=== PATIENT | male | born 1950 | race Caucasian/White ===

== ENCOUNTER 2020-05-04 11:08 | Outpatient (CLI) | payer OTHER, SELFPAY ==
--- NOTE | ~2020-05-04 | XR_ITS ---
EXAMINATION: XR shoulder LT min 2V DATE: 05/04/2020 11:23 INDICATION: Left shoulder pain. TECHNIQUE: 4 views of left shoulder were obtained. COMPARISON: None. FINDINGS: Bone alignment is normal. No fracture. There is mild osteoarthritis of glenohumeral joint a nd acromioclavicular joint. IMPRESSION: 1. Mild polyarticular osteoarthritis. Reviewed, dictated and finalized at location A.
== END 2020-05-04 11:09 | disposition home or self-care (01) ==
LOC: ANHIMG 11:12
PROVIDERS: PCP Internal Medicine; Visit Provider Nurse Practitioner
DX: M19.012 Primary osteoarthritis, left shoulder (principal)
CPT/HCPCS: 73030

== ENCOUNTER → 2020-05-17 15:16 | Outpatient (CLI) | payer OTHER, SELFPAY ==
--- NOTE | ~2020-05-17 | MR_ITS ---
EXAMINATION: MR shoulder LT wo con DATE: 05/17/2020 16:19 INDICATION: Left shoulder pain TECHNIQUE: Magnetic resonance imaging (MRI) of the left shoulder was performed without intravenous co ntrast. Sequences included axial PD-weighted FS FSE, coronal oblique PD-weighted FS FSE, coronal obli que T2-weighted FS FSE, sagittal PD-weighted FS FSE, and sagittal T1-weighted SE. COMPARISON: None. FINDINGS: Coracoacromial arch: The acromion undersurface is curved in morphology (type II). Small anterior subacromial spur at the a cromial insertion of the normal coracoacromial ligament. Mild acromioclavicular osteoarthritis. Rotator cuff: Suture anchors and multiple foci of susceptibility artifact along the greater tuberosity and cephalad aspect of the lesser tuberosity consistent with prior rotator cuff repair. There is moderate tendino dejuan of the distal supraspinatus and infraspinatus tendons and mild tendinopathy of the subscapulari s tendon but without evident residual/recurrent tear. The teres minor tendon is normal. Normal rotato r cuff muscle bulk and signal. Biceps tendon, glenoid labrum and glenohumeral cartilage: Postoperative change of prior bicipital tenodesis with normal appearance to the extra articular long head biceps tendon. There is been resection of the intra-articular long head biceps tendon from the b iceps labral complex. Normal anterosuperior sublingual foramen contiguous with a subtle labral sulcus at the 12:00-1:00 position of the anterosuperior glenoid labrum. No evident labral tear. Minimal sha llow chondral fissuring at the inferomedial margin of the humeral head. Mild partial thickness cartil age loss with smooth chondral surface at the anterosuperior glenoid. Fluid: Physiologic amount of fluid in the glenohumeral joint and biceps tendon sheath. No loose osteochondra l bodies. Small to moderate amount of fluid and mild synovitis in the subacromial/subdeltoid bursa co nsistent with mild to moderate bursitis. The fluid could also represent fluid from the glenohumeral j oint extending to residual occult full-thickness rotator cuff perforations related to the repaired te ar. Bones: Normal marrow signal with no edema, fracture or pathologic marrow replacing process. IMPRESSION: 1. Changes at the distal subscapularis, supraspinatus and infraspinatus tendons and their osseous ins ertions consistent with prior rotator cuff repair. There is residual mild to moderate tendinopathy wi thout discrete residual/recurrent tear. 2. Bicipital tenodesis. 3. Minimal left glenohumeral and mild acromioclavicular osteoarthritis. 4. Mild to moderate subacromial/subdeltoid bursitis. Reviewed, dictated and finalized at location A. IMPRESSION: 1. Changes at the distal subscapularis, supraspinatus and infraspinatus tendons and their osseous insertions consistent with prior rotator cuff repair. There is residual mild to moderate tendinopathy without discrete residual/recurrent t ear. 2. Bicipital tenodesis. 3. Minimal left glenohumeral and mild acromioclavicular osteoarthritis. 4. Mild to moderate subacromial/subdeltoid bursitis.
== END ==
PROVIDERS: PCP Internal Medicine; Visit Provider Clinical Nurse Specialist
DX: M75.52 Bursitis of left shoulder (principal); M75.22 Bicipital tendinitis, left shoulder; M19.012 Primary osteoarthritis, left shoulder
CPT/HCPCS: 73221

== ENCOUNTER 2020-11-03 08:33 | Outpatient (CLI) | payer OTHER, SELFPAY ==
--- NOTE | 2020-11-03 08:36 | ECG_ITS ---
Measurements Intervals [place] Rate: 55 P: 24 MS: 199 QRS: 6 QRSD: 104 T: 20 QT: 411 QTc: 396 Interpretive Statements SINUS BRADYCARDIA RSR' IN V1 OR V2, CONSIDER RIGHT VENTRICULAR HYPERTROPHY OR RIGHT VCD DELAYED PRECORDIAL R/S TRANSITION BASELINE ARTIFACT- I, II, III, AVR, AVL, AVF BORDERLINE ECG Electronically Signed On 11-03-2020 8:55:32 [employer] by Arpit Blake D.O.
== END 2020-11-03 08:34 | disposition home or self-care (01) ==
LOC: ANHSURGERY 08:36
PROVIDERS: PCP Internal Medicine; Visit Provider Orthopaedic Surgery
DX: Z01.818 Encounter for other preprocedural examination (principal); I10 Essential (primary) hypertension; R94.31 Abnormal electrocardiogram [ECG] [EKG]
CPT/HCPCS: 93005

== ENCOUNTER 2020-11-04 01:46 | Outpatient (CLI) | payer OTHER, SELFPAY ==
[2020-11-04 18:59] LABS: SARS-CoV-2 RNA PCR Negative
== END 2020-11-04 01:47 | disposition home or self-care (01) ==
LOC: ANHCOVIDDT 01:46
PROVIDERS: PCP Internal Medicine; Visit Provider Orthopaedic Surgery
DX: Z01.812 Encounter for preprocedural laboratory examination (principal); Z20.828 Contact with and (suspected) exposure to other viral communicable diseases
CPT/HCPCS: 87635; C9803; U0003

== ENCOUNTER 2020-11-07 01:36 | Day surgery (SDC) | payer OTHER, SELFPAY ==
[2020-10-31 09:51] VITALS: BMI 30.4
--- NOTE | 2020-11-06 12:00 | WPDANESEPPF ---
Anes - Initial Pre Proc Eval Procedure: Operation Date: 11/07/20 10:00 Proposed Procedures p Arthroscopic Rotator Cuff Repair Left Shoulder, Proceed as Indicated - Kunal Gaona MD Date/Time: 11/06/20 12:00 Surgeon: Kunal Gaona MD Pre Op Diagnosis: partial tear left rotator cuff Patient Data Age: 70 Gender: M Height: 1.8 m Weight: 99 kg Allergies Allergy/AdvReac Type Severity Reaction Status Date / Time No Known Allergies Allergy Verified 11/07/20 08:01 Home Medications Medication Instructions Recorded Confirmed Type finasteride 5 mg PO HS 10/21/19 11/07/20 History hydrochlorothiazide 12.5 mg PO QAM 10/21/19 11/07/20 History aspirin 81 mg tablet,delayed 81 mg PO DAILY 10/25/19 11/07/20 History release atorvastatin 80 mg tablet 80 mg PO DAILY #90 tablet 10/05/20 11/07/20 Rx amlodipine 10 mg PO QAM 10/31/20 11/07/20 History losartan 100 mg PO QAM 10/31/20 11/07/20 History metformin 500 mg PO QACDINNER 10/31/20 11/07/20 History ECG: Date of Service: 11/03/20 Procedure(s): CA 12 lead EKG Accession Number(s): [id number] cc: ~ Measurements Intervals [place] Rate: 55 P: 24 [place]: 199 QRS: 6 QRSD: 104 T: 20 QT: 411 QTc: 396 Interpretive Statements SINUS BRADYCARDIA RSR' IN V1 OR V2, CONSIDER RIGHT VENTRICULAR HYPERTROPHY OR RIGHT VCD DELAYED PRECORDIAL R/S TRANSITION BASELINE ARTIFACT- I, II, III, AVR, AVL, AVF BORDERLINE ECG Electronically Signed On 11-03-2020 8:55:32 [employer] by Arpit Blake D.O. Dictated By: Arpit Blake DO 11/03/20 0911 Patient hx anesthesia problems: none Family hx anesthesia problems: none PMFSH Past Medical History Medical History (Updated 11/06/20 @ 12:05 by Alexey Lewis MD) Acute medial meniscus tear of right knee Aftercare following surgery BPH (benign prostatic hyperplasia) Cholecystectomy planned 2014 Hyperlipidemia Hypertension Knee pain Obesity Osteoarthritis PUD (peptic ulcer disease) Type 2 diabetes mellitus Surgical History Surgical History H/O arthroscopy of shoulder H/O hernia repair 2015 Hx of arthroscopy Wrist Status post arthroscopic knee surgery Family History Family History Mother Family history of transient ischemic attacks Father Carcinoma of colon Family history of congestive heart failure Family history of heart disease in male family member before age 55 Other Family history of malignant neoplasm Social History Social History Smoking status: Never smoker Alcohol intake: current Drinks per week: 12 Substance use: never Living arrangements: with family Spiritual care concerns: No Anes - Eval Final PreProcedure Day of Procedure 11/06/20 12:00 Patient weight: obese Heart: regular rate and rhythm Lungs: clear to auscultation and normal air movement Airway: Mallampati scale class II Neurological: alert and oriented Last oral intake: >/= 8 hours ASA classification: III Emergent: no Anesthetic plan: proceed Anesthesia type and monitoring: general ETT Informed Consent: The patient's anesthetic plan and its attendant risks and benefits were discussed with the patient/family/POA. Questions were solicited and answers provided to the satisfaction of the patient/family/POA.
[2020-11-07] VITALS (10 sets, daily range): BP systolic 123–143; BP diastolic 67–91; PULSE 43–74; RESP 10–20; TEMP 35.9–36.4; O2SAT 94–98
[2020-11-07] MEDS: ACETAMINOPHEN 500 MG TABLET 1000 MG PO (08:06)
[2020-11-07 08:23] LABS: Glucose Point of Care 120 (65-105)
--- NOTE | 2020-11-07 08:23 | WPDANESPNB ---
Anes - Peripheral Nerve Block Date/Time: 11/07/20 08:23 I have discussed with the patient/family/POA the placement of a peripheral nerve block for post-operative pain management, including associated risks, benefits, complications, and side effects. Alternative methods of post-operative analgesia were detailed. Questions were solicited and answers provided to the satisfaction of the patient/family/POA. Time-Out: A pre-procedural Time-Out was completed immediately before starting the procedure and confirmed: Patient Identification, Site, Procedure, Patient Position and the Availability of Requisite Equipment. Clinical Indications: Acute post-operative pain management requested by the operative surgeon. Nerve Block Insertion Note Anes-nerve block: supraclavicular left Patient position: supine Skin prep: chlorhexidine Needle: 22 gauge, stimulating, insulated echogenic needle. Needle length: 80 mm Technique: ultrasound (in plane) Injectate: bupivacaine 0.5% with epi 5 mcg/ml (20cc) Observations: tolerated well Complications: none Procedure start time:: 925 Procedure end time:: 930
[2020-11-07] MEDS: KETOROLAC 15 MG/ML VIAL (*BKC) IV PUSH (08:25)
[2020-11-07] MEDS: LACTATED RINGERS 1,000 ML 30 ML IV CONT ×2 (08:25→12:58)
--- NOTE | 2020-11-07 09:13 | WPDHPUPDATE1 ---
History and Physical Update Update Date/Time: 11/07/20 09:13 History and Physical has been reviewed, including an updated exam of the patient. There are NO changes in the patient's condition. Risks, benefits, and alternatives have been discussed and questions answered. Patient agrees to proceed with procedure.
--- NOTE | 2020-11-07 09:49 | PM.HPGS ---
History of Present Illness History of Present Illness Consent: Risks, benefits, and alternatives have been discussed and questions answered. Patient agrees to proceed with procedure. Chief complaint: partial tear left rotator cuff Narrative: Mathieu Richter is a 70 year old male complains of left shoulder pain. He states his range of motion is good but he has an intermittent sharp stabbing pain radiating down his arm. He does not know a specific movement that makes his pain worse. He notes back in January he was pulling a calf during and felt a tearing in his shoulder. He has had pain since. He states 10 years ago he had a rotator cuff repair and subacromial decompression on the left. He had an injection 05/31/20. He states the injection did not help at all. He has not had PT. He has an MRI from May. He has tried Ibuprofen with some relief. Review of Systems Constitutional: Constitutional: Denies fever(s) ENT: Denies sore throat Cardiovascular: Cardiovascular: Denies dyspnea Respiratory: Respiratory: Denies cough and Denies dyspnea Musculoskeletal: Musculoskeletal: Reports as per [facility] Past Medical History Medical History (Updated 11/07/20 @ 09:51 by Kunal Gaona MD) Acute medial meniscus tear of right knee Aftercare following surgery BPH (benign prostatic hyperplasia) Cholecystectomy planned 2014 Hyperlipidemia Hypertension Knee pain Obesity Osteoarthritis PUD (peptic ulcer disease) Type 2 diabetes mellitus Surgical History Surgical History H/O arthroscopy of shoulder H/O hernia repair 2014 Hx of arthroscopy Wrist Status post arthroscopic knee surgery Family History Family History Mother Family history of transient ischemic attacks Father Carcinoma of colon Family history of congestive heart failure Family history of heart disease in male family member before age 55 Other Family history of malignant neoplasm Social History Social History Smoking status: Never smoker Alcohol intake: current Drinks per week: 12 Substance use: never Living arrangements: with family Spiritual care concerns: No Meds Home Medications and Allergies Home Medications Medication Instructions Recorded Confirmed Type finasteride 5 mg PO HS 10/21/19 11/07/20 History hydrochlorothiazide 12.5 mg PO QAM 10/21/19 11/07/20 History aspirin 81 mg tablet,delayed 81 mg PO DAILY 10/25/19 11/07/20 History release atorvastatin 80 mg tablet 80 mg PO DAILY #90 tablet 10/05/20 11/07/20 Rx amlodipine 10 mg PO QAM 10/31/20 11/07/20 History losartan 100 mg PO QAM 10/31/20 11/07/20 History metformin 500 mg PO QACDINNER 10/31/20 11/07/20 History Allergies Allergy/AdvReac Type Severity Reaction Status Date / Time No Known Allergies Allergy Verified 11/07/20 08:01 Vital Signs Vital Signs - 24 hr 11/07/20 08:15 Temperature 36.4 C Pulse Rate 61 Respiratory Rate 16 Blood Pressure 126/67 Pulse Oximetry 97 Exam Narrative: Exam Narrative: No clinical deformity. Moderate tenderness at the rotator cuff insertion. Active elevation 170?. Significant painful arc of motion. External rotation 80?, internal rotation L2. No instability. No apprehension. Speed's test negative. Supraspinatus strength 4/5, external rotation strength 4/5. Pain with resistance. No effusion. No warmth or erythema. No swelling. AC joint nontender. Cross-arm test negative. Negative belly press test. Elbow full range of motion. Normal frame opener strength. Radial pulse palpable. Light touch sensation intact. Normal cervical spine motion without pain. Normal scapular mechanics. Const: General: healthy appearing and no acute distress Orientation/consciousness: patient oriented x3 Neuro: General: patient oriented x3 Extrem: General: normal to inspec
[2020-11-07] MEDS: ceFAZolin 2 GM/D5W 50 ML 2 GM/50 ML BAG IVPB (09:57)
[2020-11-07 13:10] LABS: Glucose Point of Care 149 (65-105)
--- NOTE | 2020-11-07 14:11 | SUR.PHASEI ---
PT AWAKE AND ALERT. DENIES PAIN OR NAUSEA. READY TO HAVE A DRINK
--- NOTE | 2020-11-07 16:52 | P.OP_ITS ---
Procedure Note - Detailed Date of procedure: 11/07/20 Pre-op diagnosis: partial tear left rotator cuff Post-op diagnosis: other ( full-thickness supraspinatus rotator cuff tear left shoulder, status post previous rotator cuff repair.) Procedure performed: 1. Arthrosocopic rotator cuff repair. Description of procedure: The previous repair had 2 small to medium-sized defects in the supraspinatus tendon. One was more anterior medial and 1 was in the posterior aspect of the supraspinatus. The infraspinatus looked good as did the subscapularis. A suture anchor was used at each defect. Tissue quality was fairly good. Complete bursectomy was performed. There were significant adhesions. The glenohumeral joint had moderate degeneration of the posterior labrum and inferior or posterior glenoid. Debridement was performed. The upper aspect of the humeral head had very mild but notable early degenerative changes. The biceps tendon was absent from prior surgery. Anesthesia: GETA Surgeon: Kunal Gaona MD Estimated blood loss (mL): 20 Complications: None Condition: stable Disposition: PACU Findings: Physician higher level teaching assistant, Norma Gillis PA-C, required for surgery; including patient positioning, draping, tissue retraction, maintaining instrument/ camera position, suture retrieval, wound closure, and dressing placement. Operative detail: Preoperative antibiotics were given. An interscalene block was administered in the preoperative area. The patient was bought brought to the operating room. A general anesthetic was administered. The patient was carefully positioned in the lateral decubitus position. The head and neck were carefully positioned. The non operative extremity was also carefully positioned. The shoulder was prepped and draped in the usual sterile fashion. Examination was performed. Standard posterior and anterior arthroscopic portals were established. Inflow achieved with the arthroscopic pump using saline and epinephrine. The glenohumeral joint was carefully inspected. Gentle debridement of the degenerative posterior labrum and posterior inferior glenoid was performed. The tears of the supraspinatus were identified from the articular side. Attention was turned to the subacromial space. A complete bursectomy was performed. Acromioplasty was not required. The tear configuration was carefully assessed. It was elected to place an anchor at each of the tear sites. Double loaded anchor sutures were then passed through the cuff tissue. Combination of antegrade and retrograde passing was used. Simple sutures were used to confer the tissue posteriorly. Modest lateralization was also performed. Anteriorly, a modified Davin-Julio C stitch was used. The sutures were tied arthroscopically. The 2 tears came back together very nicely. The tissue was fairly good quality. The arthroscopic instruments were removed. The wounds were closed with 3-0 Monocryl subcuticular suture and steri strips. There were no complications. A sling was applied and the patient brought to the recovery room.
== END 2020-11-07 15:25 | disposition home or self-care (01) ==
PROVIDERS: PCP Internal Medicine; Visit Provider Orthopaedic Surgery
PROC: (CPT 29805; principal; 2020-11-07 10:00)
DX: S46.012A Strain of muscle(s) and tendon(s) of the rotator cuff of left shoulder, initial encounter (principal); G89.18 Other acute postprocedural pain; X50.0XXA Overexertion from strenuous movement or load, initial encounter; M19.012 Primary osteoarthritis, left shoulder; I10 Essential (primary) hypertension; E11.9 Type 2 diabetes mellitus without complications; E78.5 Hyperlipidemia, unspecified; N40.0 Benign prostatic hyperplasia without lower urinary tract symptoms; K27.9 Peptic ulcer, site unspecified, unspecified as acute or chronic, without hemorrhage or perforation; Z79.84 Long term (current) use of oral hypoglycemic drugs; Z79.82 Long term (current) use of aspirin; E66.9 Obesity, unspecified; Z68.29 Body mass index [BMI] 29.0-29.9, adult
CPT/HCPCS: 29827; 64415; 87635; 93005; A9270; C1713; C9803; J0690; J1100; J1885; J2250; J2405; J2704; J3010; J7120; U0003

== ENCOUNTER 2020-12-27 09:02 | Outpatient (RCR) | payer OTHER, SELFPAY ==
--- NOTE | 2020-12-27 08:08 | PTOPEVAL ---
Thank you for referring Mathieu Richter to [facility].? The patient is scheduled to be seen for therapy? ____x/week for ___ weeks. Please review, sign, date and return this plan of care LUTHER. I agree with and certify that the following plan of care is medically necessary. Referring Physician Date Admitting Provider: Attending Provider: Kunal Gaona MD Referring Provider: *PT Outpatient Evaluation Start: 12/27/20 07:06 Freq: Status: Active Protocol: Document 12/27/20 07:13 [facility] (Rec: 12/27/20 08:07 [facility] [id number]) Therapy Assessment Status Assessment Status Assessment Status Evaluation Outpatient Past Medical History Neurological History Hx Neurological Disorders No Significant History Cardiovascular History Hx Other Cardiac Disorders Yes: DENIES CARDIAC SYMPTOMS- SEES DR. MARIELY DELACRUZ, [facility], X2/ [phone] Respiratory History Hx Respiratory Disorders No Significant History Gastrointestinal History Hx Cholecystectomy Yes Hx Hernia Yes: BILATERAL INGUINAL HERNIA REPAIR, UMBILICUAL HERNIA REPAIR Hx Ulcer Yes: POSSIBLY YEARS AGO- STOMACH ULCER Genitourinary History Hx Benign Prostatic Hyperplasia Yes Musculoskeletal History Hx Other Musculoskeletal Disorders Yes: RT MENISUS TEAR REPAIR, CURRENT LT PARTIAL ROTATOR CUFF TEAR Hematological History Hx Hematological Disorders No Significant History Endocrine History Hx Diabetes Yes HEENT History Hx Tonsillectomy Yes: CHILD Hx Other HEENT Disorders Yes: GLASSES Integumentary History Hx Other Skin Disorders Yes: SKIN CA REMOVED RT RELIGIOUS , BACK, BILATERAL WRISTS Reproductive History Hx Reproductive Disorders No Significant History Psychosocial History Hx Psychiatric Disorders No Significant History Pain History History of Any Previous or Ongoing No Significant History Instance of Pain Anesthesia History Hx Anesthesia Reactions No Significant History Other History Hx Cancer Yes: SKIN Evaluation Information Problem Diagnosis s/p L arthroscopic RTC repair Onset 11/07/20 Additional Evaluation Detail quick dash = Subjective Information patient reports he had L RTC Query Text:As Reported By Patient/ repair on 11/07/20. he reports Family he had the same surgery on the same shoulder 10-11 years prior. he reports this time around he injured his shoudl
== END 2021-01-18 13:50 | disposition home or self-care (01) ==
LOC: CHSPT 09:02
PROVIDERS: Visit Provider Orthopaedic Surgery
DX: Z48.89 Encounter for other specified surgical aftercare (principal)
CPT/HCPCS: 97110; 97161; 97530

== ENCOUNTER → 2022-06-26 15:53 | Outpatient (CLI) | payer OTHER, SELFPAY ==
--- NOTE | ~2022-06-26 | MR_ITS ---
EXAMINATION: MR hip LT wo con DATE: 06/26/2022 17:15 INDICATION: Left hip pain. TECHNIQUE: Magnetic resonance imaging (MRI) of the left hip was performed without intravenous contras t. COMPARISON: Left hip radiographs 01/16/2022, CT abdomen and pelvis 08/29/2015 FINDINGS: Bones/cartilage: Bone alignment is normal. No fracture. There is a chronic 21 mm sclerotic lesion in left ilium, likel y a benign lesion such as an enchondroma. There is decreased femoral head/neck offset bilaterally, wh ich may be seen with femoral acetabular impingement. There is moderate osteoarthritis of the hips. Sm all [id number] images of left hip demonstrate deep partial thickness cartilage loss anterosuperior ly and osteophytes. Labrum: There is a tear of the left acetabular labrum. Fluid: There is no hip joint effusion. There is mild right trochanteric bursitis and moderate left trochante pamela bursitis. Soft tissues: There is a small right inguinal hernia containing fat. The prostate is moderately enlarged. There is diverticulosis of the colon without evidence of diverticulitis. There are partial tears of the origin s of the hamstring tendons bilaterally. The iliopsoas tendons are normal. There is mild right gluteus minimus tendinopathy. There are partial tears of left gluteus minimus and gluteus medius tendons. Th ere is edema in the left gluteus medius at the myotendinous junction, consistent with strain (grade 1 ). IMPRESSION: 1. Moderate osteoarthritis of the hips. 2. Partial tears of left gluteus minimus and gluteus medius tendons. Mild strain of left gluteus medi us muscle. Reviewed, dictated and finalized at location A. IMPRESSION: 1. Moderate osteoarthritis of the hips. 2. Partial tears of left gluteus minimus and gluteus medius tendons. Mild strai n of left gluteus medius muscle.
== END ==
PROVIDERS: PCP Internal Medicine; Visit Provider Orthopaedic Surgery
DX: M16.12 Unilateral primary osteoarthritis, left hip (principal); N40.0 Benign prostatic hyperplasia without lower urinary tract symptoms; K40.90 Unilateral inguinal hernia, without obstruction or gangrene, not specified as recurrent; K57.30 Diverticulosis of large intestine without perforation or abscess without bleeding; M70.72 Other bursitis of hip, left hip
CPT/HCPCS: 73721

== ENCOUNTER 2022-06-28 09:52 | Outpatient (RCR) | payer OTHER, SELFPAY ==
--- NOTE | 2022-06-28 11:21 | PTOPEVAL ---
Thank you for referring Mathieu Richter to [facility].? The patient is scheduled to be seen for therapy? 1-2x/week for 6 visits. Please review, sign, date and return this plan of care LUTHER. I agree with and certify that the following plan of care is medically necessary. Referring Physician Date Admitting Provider: Attending Provider: YECENIA Melton Referring Provider: *PT Outpatient Evaluation Start: 06/28/22 09:09 Freq: Status: Active Protocol: Document 06/28/22 09:10 [facility] (Rec: 06/28/22 11:20 [facility] [id number]) Therapy Assessment Status Assessment Status Assessment Status Evaluation Outpatient Past Medical History Neurological History Hx Neurological Disorders No Significant History Cardiovascular History Hx Other Cardiac Disorders Yes: DENIES CARDIAC SYMPTOMS- SEES DR. MARIELY DELACRUZ, [facility], X2/ [phone] Respiratory History Hx Respiratory Disorders No Significant History Gastrointestinal History Hx Cholecystectomy Yes Hx Hernia Yes: BILATERAL INGUINAL HERNIA REPAIR, UMBILICUAL HERNIA REPAIR Hx Ulcer Yes: POSSIBLY YEARS AGO- STOMACH ULCER Genitourinary History Hx Benign Prostatic Hyperplasia Yes Musculoskeletal History Hx Other Musculoskeletal Disorders Yes: RT MENISUS TEAR REPAIR, CURRENT LT PARTIAL ROTATOR CUFF TEAR Hematological History Hx Hematological Disorders No Significant History Endocrine History Hx Diabetes Yes HEENT History Hx Tonsillectomy Yes: CHILD Hx Other HEENT Disorders Yes: GLASSES Integumentary History Hx Other Skin Disorders Yes: SKIN CA REMOVED RT MORMONISM , BACK, BILATERAL WRISTS Reproductive History Hx Reproductive Disorders No Significant History Psychosocial History Hx Psychiatric Disorders No Significant History Pain History History of Any Previous or Ongoing No Significant History Instance of Pain Anesthesia History Hx Anesthesia Reactions No Significant History Other History Hx Cancer Yes: SKIN Evaluation Information Problem Diagnosis L hip OA/bursitis Onset 06/21/2022 Subjective Information Pt reports that L hip pain has Query Text:As Reported By Patient/ been happening since Spring Family of this year but denies an incident associated with his pain. He has had XRay and now MRI yesterday with MRI showing bilateral moderate hip
== END 2022-07-23 10:15 | disposition home or self-care (01) ==
LOC: CHSPT 09:52
PROVIDERS: Visit Provider Physician Assistant Surgical
DX: M16.12 Unilateral primary osteoarthritis, left hip (principal); M70.62 Trochanteric bursitis, left hip
CPT/HCPCS: 97014; 97110; 97112; 97161; G0283

== ENCOUNTER 2022-08-16 08:26 | Outpatient (CLI) | payer OTHER, SELFPAY ==
--- NOTE | 2022-08-16 08:49 | ECG_ITS ---
Measurements Intervals [place] Rate: 54 P: 56 [place]: 207 QRS: 39 QRSD: 100 T: 53 QT: 429 QTc: 409 Interpretive Statements SINUS BRADYCARDIA CANNOT RULE OUT SEPTAL INFARCT, AGE INDETERMINATE BASELINE ARTIFACT- II, III, AVR, AVL, AVF ABNORMAL ECG COMPARED TO ECG 11/03/2020 09:11:46 CANNOT RULE OUT SEPTAL INFARCT, AGE INDETERMINATE NOW PRESENT Electronically Signed On 08-16-2022 9:54:13 CDT by Arpit Blake D.O.
[2022-08-16 08:53] LABS: Hematocrit 45.7 % (42.0-52.0); Hemoglobin 15.6 g/dL (14.0-18.0)
[2022-08-16 09:04] LABS: Hemoglobin A1C 6.5 % (<5.7)
[2022-08-16 09:08] LABS: Urine Cotinine NEGATIVE
[2022-08-16 09:08] LABS: Albumin Level 4.2 g/dL (3.5-5.1); Estimated Glomerular Filt Rate > 60; Glucose 147 mg/dL (65-110)
== END 2022-08-16 08:27 | disposition home or self-care (01) ==
LOC: ANHLAB 08:28
PROVIDERS: PCP Internal Medicine; Visit Provider Orthopaedic Surgery
DX: M16.12 Unilateral primary osteoarthritis, left hip (principal); I10 Essential (primary) hypertension; E78.2 Mixed hyperlipidemia; E11.9 Type 2 diabetes mellitus without complications
CPT/HCPCS: 80307; 82040; 82565; 82947; 83036; 85014; 85018; 93005

== ENCOUNTER 2022-09-18 09:52 | Outpatient (CLI) | payer OTHER, SELFPAY ==
[2022-09-18 11:08] LABS: Basophils Absolute Auto 0.1 K/mm3 (0.0-0.1); Basophils Percent Auto 0.7 % (0.2-1.2); Eosinophils Absolute Auto 0.1 K/mm3 (0-0.3); Eosinophils Percent Auto 1.3 % (0-4.4); Hematocrit 46.2 % (42.0-52.0); Hemoglobin 15.6 g/dL (14.0-18.0); Immature Granulocyte Absolute 0.02 K/mm3 (0.00-0.031); Immature Granulocyte Percent A 0.3 % (0-0.5); Lymphocytes Absolute Auto 1.31 K/mm3 (0.9-3.2); Lymphocytes Percent Auto 19.6 % (18.3-44.2); Mean Corpuscular HGB Conc 33.8 g/dl (32-36); Mean Corpuscular Hemoglobin 30.7 pg (26-34); Mean Corpuscular Volume 90.9 fl (80-100); Mean Platelet Volume 11.4 fl (7.4-10.4); Monocytes Absolute Auto 0.4 K/mm3 (0.1-0.6); Monocytes Percent Auto 6.4 % (2.6-8.5); Neutrophils Absolute Auto 4.8 K/mm3 (1.3-6.7); Neutrophils Percent Auto 71.7 % (45.5-73.1); Platelet Count Result 229 k/mm3 (150-375); Red Blood Count 5.08 M/mm3 (4.6-6.20); Red Cell Distribution Width 11.9 % (11.5-14.5); White Blood Count 6.7 K/mm3 (4.5-10.0)
== END 2022-09-18 09:53 | disposition home or self-care (01) ==
LOC: ANHSURGERY 09:56
PROVIDERS: PCP Internal Medicine; Visit Provider Orthopaedic Surgery
DX: M16.12 Unilateral primary osteoarthritis, left hip (principal); Z01.818 Encounter for other preprocedural examination
CPT/HCPCS: 36415; 85025; 87081

== ENCOUNTER 2022-10-15 01:45 | Day surgery (SDC) | payer OTHER, SELFPAY ==
[2022-09-18 10:03] VITALS: BMI 29.9
--- NOTE | 2022-09-18 10:28 | PC.NURSE ---
Report to the Outpatient Waiting Room, entrance under the green pavilion located off [facility], at time _0600 on date __10/15/22 . Planned Procedure Time: _729 . Time changes happen often and if your time is changed the preop area will call you the afternoon before. - You and your visitor will be asked to self-screen and do not enter if you have any COVID symptoms. - We encourage only one visitor and NO visitors under age 16 are allowed at this time. Your visitor will receive communication by the phone number that is given day of service. - The patient visitor is requested to social distance or may leave the building when not with patient due to restrictions. - A mask is required within the hospital. Patients may have clear liquids (water, carbonated beverages, clear teas, apple juice) until 3 hours prior to surgery with a maximum of 20 ounces. - No food from midnight until time of surgery - Infants may have breast milk until 4 hours before surgery, formula 6 hours prior to surgery. - Children will be allowed to drink immediately following surgery. If applicable, please bring a bottle or sippy cup to assist with drinking. Juice, water, soda, and popsicles are readily available. For infants on formula, please bring formula the day of surgery. Pacifiers are allowed. Take the following medications with a SIP of water the morning of surgery: __AMLODIPINE Medications to discontinue per physician ___ASPIRIN AND IBUPROFEN 7 DAYS PRE OP PER DR COLLIER Date to take last dose____10/07/22 Please no make-up, nail welsh, hairspray, perfume, deodorant, or body powder the day of surgery. No jewelry (including any body piercings) or valuables the day of surgery, leave them at home. Please take a shower or bath the night before, or the morning of, surgery with an antibacterial soap. Wear comfortable, loose fitting clothing. Children are encouraged to wear pajamas. - Jewelry must be removed prior to entering the operating room. Rings and piercings that are not removed may be cut off. - The hospital will not accept responsibility for valuables. - Please leave all valuables, including medications, at home the day of surgery. If you are going home after surgery, a licensed charter driver must drive you home. - NO public transportation without another adult. - We recommend that an adult stay with you for 24 hours following discharge. - We also recommend that you do not drive, make important decision, drink alcoholic beverages, or take any drugs that were not prescribed by your health care provider for at least 24 hours after your discharge time. For Pediatric surgeries, we recommend two adults accompany the child home. Follow any additional instructions given to you from your surgeon. If you or anyone in your household have experienced Covid symptoms in the past week, please notify your surgeon or the nurse liaison at the phone number below for possible testing. VERBAL AND WRITTEN instructions given to _PATIENT AND MINDA and asked if any additional questions and then verbalized understanding. Patient advised to call surgeon office or pre surgery nurse liaison [phone] if any additional questions.
[2022-09-18 10:48] VITALS: BP 132/71; PULSE 55; RESP 18; TEMP 36.6; O2SAT 97
[2022-10-15] VITALS (15 sets, daily range): BP systolic 107–143; BP diastolic 60–83; PULSE 46–76; RESP 10–20; TEMP 36.5–37.1; O2SAT 94–100
--- NOTE | ~2022-10-15 | XR_ITS ---
EXAMINATION: XR hip LT min 2V DATE: 10/15/2022 10:15 INDICATION: Total left hip arthroplasty. Postop. TECHNIQUE: 2 views of left hip were obtained. COMPARISON: Left hip radiographs 09/18/2022 FINDINGS: There is a total left hip arthroplasty in near-anatomic alignment. No fracture. There is ga s in the soft tissues, consistent with recent surgery. IMPRESSION: 1. Total left hip arthroplasty in near-anatomic alignment. Reviewed, dictated and finalized at location A. DESIGNER
[2022-10-15 06:42] LABS: Glucose Point of Care 139 mg/dl (65-105)
[2022-10-15] MEDS: TRANEXAMIC ACID 1,000MG/ISO100 1,000 MG/100 ML BAG 200 MG IVPB (06:50)
[2022-10-15] MEDS: ACETAMINOPHEN 500 MG TABLET 1000 MG PO (06:50)
[2022-10-15] MEDS: LACTATED RINGERS 1,000 ML 30 ML IV CONT ×2 (06:50→09:53)
--- NOTE | 2022-10-15 07:03 | WPDANESEPPF ---
Anes - Initial Pre Proc Eval Procedure: Operation Date: 10/15/22 07:30 Proposed Procedures p Left Total Hip Arthroplasty - Kunal Gaona MD Date/Time: 10/15/22 07:03 Surgeon: Kunal Gaona MD Pre Op Diagnosis: primary OA left hip Patient Data Age: 72 Gender: M Height: 1.8 m Weight: 76.4 kg Last Vital Signs Temp 36.6 C 10/15/22 06:53 Pulse 54 L 10/15/22 06:53 Resp 14 10/15/22 06:53 BP 143/72 H 10/15/22 06:53 Pulse Ox 97 10/15/22 06:53 O2 Del Method Room Air 10/15/22 06:53 Allergies Allergy/AdvReac Type Severity Reaction Status Date / Time No Known Allergies Allergy Verified 10/15/22 07:00 Home Medications Medication Instructions Recorded Confirmed Type finasteride 5 mg tablet 5 mg PO HS 10/21/19 09/18/22 History hydrochlorothiazide 12.5 mg tablet 12.5 mg PO QAM 10/21/19 09/18/22 History aspirin 81 mg tablet,delayed 81 mg PO DAILY 10/25/19 09/18/22 History release (Adult Low Dose Aspirin) losartan 100 mg tablet See Rx Instructions .Route 06/26/22 09/18/22 Rx .COMPLEX #90 tabs atorvastatin 80 mg tablet See Rx Instructions .Route 07/08/22 09/18/22 Rx .COMPLEX #90 tabs ibuprofen 400 mg tablet 400 mg PO Q6H PRN Pain 09/18/22 09/18/22 History amlodipine 10 mg tablet See Rx Instructions .Route 10/02/22 Rx .COMPLEX #90 tabs metformin 500 mg tablet See Rx Instructions .Route 10/02/22 Rx .COMPLEX #90 tabs Laboratory Tests 10/15/22 06:39 POC Capillary Glucose 139 mg/dl H mg/dl (65-105) Patient hx anesthesia problems: none Family hx anesthesia problems: none Results Review: All pre-operative results and documents have been reviewed as part of the pre-operative evaluation. [facility] Past Medical History Medical History Acute medial meniscus tear of right knee Aftercare following surgery BPH (benign prostatic hyperplasia) Cholecystectomy planned 2014 Hyperlipidemia Hypertension Knee pain Obesity Osteoarthritis PUD (peptic ulcer disease) Type 2 diabetes mellitus Surgical History Surgical History H/O arthroscopy of shoulder H/O hernia repair 2014 H/O shoulder surgery Left 11/07/2020 Hx of arthroscopy Wrist Status post arthroscopic knee surgery Family History Family History Mother Family history of transient ischemic attacks Father Carcinoma of colon Family history of congestive heart failure Family history of heart disease in male family member before age 55 Other Family history of malignant neoplasm Social History Social History Social History: Caffeine-coffee Smoking status: Never smoker Additional smoking assessment comments: DENIES ANY FORM OF TOBACCO USE Alcohol intake: current Alcohol use details: occasional Substance use: never Living arrangements: with family Spiritual care concerns: No Anes - Eval Final PreProcedure Day of Procedure 10/15/22 07:03 Patient weight: normal Heart: regular rate and rhythm Lungs: clear to auscultation Airway: Mallampati scale class II Neurological: alert and oriented Last oral intake: >/= 8 hours ASA classification: III Emergent: no Anesthetic plan: proceed Anesthesia type and monitoring: general ETT and standard monitoring Results Review: All pre-operative results and documents have been reviewed as part of the pre-operative evaluation. Informed Consent: The patient's anesthetic plan and its attendant risks and benefits were discussed with the patient/family/POA. Questions were solicited and answers provided to the satisfaction of the patient/family/POA.
--- NOTE | 2022-10-15 07:24 | WPDHPUPDATE1 ---
History and Physical Update Update Date/Time: 10/15/22 07:24 History and Physical has been reviewed, including an updated exam of the patient. There are NO changes in the patient's condition. Risks, benefits, and alternatives have been discussed and questions answered. Patient agrees to proceed with procedure.
[2022-10-15] MEDS: ceFAZolin 2 GM/D5W 50 ML 2 GM/50 ML BAG IVPB ×3 (07:29→23:41)
--- NOTE | 2022-10-15 09:44 | W.PM.PROC2 ---
Procedure Note - Detailed Date of Procedure 10/15/22 Pre-op Diagnosis primary OA left hip Post-op Diagnosis Other (1. Left hip djd 2. Left hip abductor muscle tear.) Procedure Performed 1. Left Total Hip Arthroplasty. 2. Left abductor muscle repair. Surgeon Kunal Gaona MD Anesthesia General Findings Moderate size gluteus medius tear. Primarily longitudinal with displacement anterior and proximal. Anatomic repair accomplished with multiple Ethibond suture. Description of Procedure The patient was given preoperative antibiotics. A general anesthetic was administered. The patient was carefully placed in the lateral decubitus position on the PEG board. The shoulders and hips were carefully positioned for component and leg length positioning reference. The hip was prepped and draped in the usual sterile fashion. A longitudinal incision was created over the posterior aspect of the greater trochanter. Careful dissection was brought down through the deep fascia with electrocautery. A minimally invasive optimized posterior approach to the hip was performed. The short external rotators and capsule were taken down in an L-shaped capsulotomy. The tissue was tagged for later repair using number 2 high strength suture. The femoral neck was measured and taken in situ. The femoral head was removed. The acetabulum was carefully exposed. The inferior capsule was released. The labrum was resected. The acetabulum was sequentially reamed to the intended cup size. The cup was impacted into position with excellent press-fit. Typical anatomic landmarks, including the bony contact points as well as the inferior transverse acetabular ligament were used to confirm cup positioning with preoperative templating. Attention was turned to the femur, which was carefully exposed. The hip was reamed and then broached sequentially. Excellent press-fit was obtained with the broach. The hip was trialed. Measurements were utilized, including the lesser trochanter as well as the center of the femoral head and the tip of the trochanter, and excellent assessment of the offset and leg lengths were confirmed. The real component was impacted into position. Trialing confirmed appropriate leg length and offset with soft tissue balancing as well apparent feel of the leg, both at the knee and the heel. Soft tissues were assessed using the the iliotibial band. Reduction of the posterior capsule and external rotators were also used as a secondary assessment. The hip was copiously irrigated with pulsatile lavage antibiotic solution periodically throughout the procedure. The real components were then assembled and reduced. The hip was stable throughout typical maneuvers, including extension, external rotation to 70 degrees, the position of sleep as well as flexion to 90 degrees with internal rotation past 45 degrees. The shake test confirmed stability without impingement. Osteophytes were removed as necessary. The gluteus medius was repaired with multiple Ethibond suture #5, with several through bone. The repair was primarily side to side, without significant tension. The tendon and trochanter bone were rasped prior to the repair. The short external rotators and capsule were repaired back to the posterior trochanter through drill holes. The deep fascia was repaired with running number 2 Quill suture, followed by 0 Stratafix suture and 2-0 Stratafix suture in the dermis. Steri-Strips were placed on the skin, followed by a sterile silver occlusive dressing. There were no complications. Meticulous hemostasis was maintained with the AquaMantys device. The patient was brought to the recovery room in stable condition. There were no complications. Implants The Accolade II hip stem, 127 degree size 9 , was utilized with excellent press-fit. The 58 mm Trident II acetabular component was impacted with excellent press-fit stability. The +2.5, 36 mm Biolox ceramic femoral head was utilized. 10
[2022-10-15 09:57] LABS: Glucose Point of Care 183 mg/dl (65-105)
[2022-10-15] MEDS: fentaNYL CITRATE INJ (*CRX) 100 MCG/2 ML VIAL 25 MCG IV PUSH ×8 (10:14→10:47)
[2022-10-15] MEDS: HYDROmorphone HCL INJ (*CRX) 1 MG/ML SYR IV PUSH ×2 (10:59→11:12)
--- NOTE | 2022-10-15 11:54 | ADMGEN ---
This patient, Mathieu Richter, was admitted to [facility] Surg Room 305-01. Patient/family oriented to hospital policies and general routines including ID bracelet, bed and alarms, visiting hours, pain management, procedures, bathroom and other care routines, personal items, smoking policy, room service/diet, and visiting hours. Information on how to activate the Rapid Response Team has been discussed. Patient/Family are encouraged to report perceived risks to care and to ask questions if they do not understand what they are told or what they should do.
[2022-10-15] MEDS: oxyCODONE HCL (*CRX) 5 MG TAB IR PO ×2 (14:15→17:54)
[2022-10-15] MEDS: SENNA/DOCUSATE SODIUM TABLET 2 TAB PO (16:13)
[2022-10-15] MEDS: MELOXICAM 7.5 MG TABLET PO (16:13)
[2022-10-15 16:56] LABS: Glucose Point of Care 186 mg/dl (65-105)
[2022-10-15] MEDS: CYCLOBENZAPRINE HCL 10 MG TABLET PO (17:17)
[2022-10-15] MEDS: ASPIRIN 81 MG ENTERIC TABLET PO (20:32)
[2022-10-15] MEDS: FINASTERIDE 5 MG TABLET PO (20:32)
[2022-10-15 22:08] LABS: Glucose Point of Care 238 mg/dl (65-105)
[2022-10-15] MEDS: oxyCODONE HCL (*CRX) 5 MG TAB IR 10 MG PO (23:42)
[2022-10-16 01:23] VITALS: BP 120/67; PULSE 61; RESP 18; TEMP 37.2; O2SAT 96
[2022-10-16 03:00] VITALS: PULSE 61; RESP 18; O2SAT 96
[2022-10-16 05:23] VITALS: BP 141/69; PULSE 8; RESP 20; TEMP 37.3; O2SAT 95
[2022-10-16] MEDS: oxyCODONE HCL (*CRX) 5 MG TAB IR PO ×2 (05:45→09:03)
[2022-10-16 06:38] LABS: Basophils Percent Auto 0.2 % (0.2-1.2); Eosinophils Percent Auto 0.2 % (0-4.4); Hemoglobin 12.5 g/dL (14.0-18.0); Immature Granulocyte Absolute 0.08 K/mm3 (0.00-0.031); Immature Granulocyte Percent A 0.6 % (0-0.5); Lymphocytes Absolute Auto 1.61 K/mm3 (0.9-3.2); Lymphocytes Percent Auto 11.9 % (18.3-44.2); Mean Corpuscular HGB Conc 33.8 g/dl (32-36); Mean Corpuscular Hemoglobin 30.2 pg (26-34); Mean Corpuscular Volume 89.4 fl (80-100); Mean Platelet Volume 11.6 fl (7.4-10.4); Monocytes Absolute Auto 1.1 K/mm3 (0.1-0.6); Monocytes Percent Auto 8.2 % (2.6-8.5); Neutrophils Absolute Auto 10.7 K/mm3 (1.3-6.7); Neutrophils Percent Auto 78.9 % (45.5-73.1); Platelet Count Result 178 k/mm3 (150-375); Red Blood Count 4.14 M/mm3 (4.6-6.20); Red Cell Distribution Width 11.8 % (11.5-14.5); White Blood Count 13.6 K/mm3 (4.5-10.0)
[2022-10-16 06:40] LABS: Anion Gap 3 mmol/L (8-16); Blood Urea Nitrogen 16 mg/dL (9-20); Calcium 7.5 mg/dL (8.4-10.2); Carbon Dioxide 27 mmol/L (22-30); Chloride 103 mmol/L (98-107); Estimated CRCL calculation 80 ml/min; Estimated Glomerular Filt Rate > 60; Glucose 138 mg/dL (65-110); Potassium 3.6 mmol/L (3.4-5.0); Sodium 133 mmol/L (137-145)
[2022-10-16] MEDS: ceFAZolin 2 GM/D5W 50 ML 2 GM/50 ML BAG IVPB (07:55)
[2022-10-16 08:20] LABS: Glucose Point of Care 143 mg/dl (65-105)
[2022-10-16 08:37] VITALS: BP 123/69; PULSE 57; RESP 16; TEMP 36.2; O2SAT 96
[2022-10-16] MEDS: metFORMIN HCL 500 MG TABLET PO (08:57)
[2022-10-16] MEDS: ATORVASTATIN 40 MG TABLET 80 MG PO (08:57)
[2022-10-16] MEDS: amLODIPine BESYLATE 5 MG TABLET 10 MG BY MOUTH (08:57)
[2022-10-16] MEDS: SENNA/DOCUSATE SODIUM TABLET 2 TAB PO (08:58)
[2022-10-16] MEDS: MELOXICAM 7.5 MG TABLET PO (08:58)
[2022-10-16] MEDS: hydroCHLOROthiazide 12.5 MG CAPSULE PO (08:58)
[2022-10-16] MEDS: polyethylene glycoL 3350 17 GM POWD.PACK PO (08:58)
[2022-10-16] MEDS: LOSARTAN POTASSIUM 100 MG TABLET PO (08:58)
[2022-10-16 11:49] LABS: Glucose Point of Care 191 mg/dl (65-105)
[2022-10-16 12:11] VITALS: BP 112/67; PULSE 60; RESP 16; TEMP 36.8; O2SAT 94
[2022-10-16] MEDS: oxyCODONE HCL (*CRX) 5 MG TAB IR 10 MG PO (12:13)
--- NOTE | 2022-10-16 13:29 | PM.DS ---
DS: Admitting Diagnosis Discharge Date 10/16/22 Admitting Diagnosis Left hip degenerative arthritis. Left hip abductor muscle tear. DS: Discharge Diagnosis Discharge Diagnosis (1) Status post total hip replacement, left: Code(s): Z96.642 - Presence of left artificial hip joint Status: Acute (2) Rupture of tendon of hip abductor: Code(s): S76.019A - Strain of muscle, fascia and tendon of unspecified hip, initial encounter Status: Acute DS: Summary Hospital Course Reason for hospitalization: Total hip arthroplasty. Required repair of the abductor muscle at the greater trochanter. Hospital Course: Tolerated surgery well. Progressed appropriately with therapy. We will protect with toe-touch weight-bearing for 6 weeks using the walker. Then moved to the cane to protect the abductor repair. Status at Discharge Functional status at discharge: uses cane/walker Time Spent with Patient Time attestation: Total time spent providing and/or coordinating discharge services: Exam Const: General: no acute distress Resp: Effort & Inspection: normal respiratory effort Skin: Other: Wound healing well. Mepilex dressing intact. No hematoma or drainage. Neuro: Motor exam (neuro): 5/5 motor strength present throughout Sensory Exam: normal sensation Psych: Mental Status: mental status grossly normal Speech and movement: Normal speech and movement present Discharge Plan Discharge Patient Disposition: Home, Self-Care Discharge Instructions: See instruction sheet. Patient Instructions: Pain Management (DC), Total Hip Replacement (DC) Follow-up/Referrals: Kunal Gaona MD [Physician] - Discharge Medications: New oxycodone-acetaminophen 5-325 mg tablet 1 - 2 tablet PO Q4-6H MDD 6 tablets PRN (Reason: pain) Qty: 30 0RF Continued finasteride 5 mg Tablet 5 mg PO HS hydrochlorothiazide 12.5 mg Tablet 12.5 mg PO QAM ibuprofen 400 mg Tablet 400 mg PO Q6H PRN (Reason: Pain) losartan 100 mg tablet See Rx Instructions .ROUTE .COMPLEX Qty: 90 1RF Dose Instruction: TAKE 1 TABLET BY MOUTH EVERY MORNING Rx Instructions: TAKE 1 TABLET BY MOUTH EVERY MORNING atorvastatin 80 mg tablet See Rx Instructions .ROUTE .COMPLEX Qty: 90 1RF Dose Instruction: TAKE 1 TABLET BY MOUTH DAILY Rx Instructions: TAKE 1 TABLET BY MOUTH DAILY amlodipine 10 mg tablet See Rx Instructions .ROUTE .COMPLEX Qty: 90 1RF Dose Instruction: TAKE 1 TABLET BY MOUTH EVERY MORNING Rx Instructions: TAKE 1 TABLET BY MOUTH EVERY MORNING metformin 500 mg tablet See Rx Instructions .ROUTE .COMPLEX Qty: 90 1RF Dose Instruction: TAKE 1 TABLET BY MOUTH DAILY Rx Instructions: TAKE 1 TABLET BY MOUTH DAILY Changed aspirin [Adult Low Dose Aspirin] 81 mg tablet,delayed release (DR/EC) 81 mg PO BID 14 Days Qty: 0 0RF Label Comments: TAKES AT HS
== END 2022-10-16 14:13 | disposition home or self-care (01) ==
LOC: ANHSURGERY 06:01 → ANH3MEDSUR 11:44
PROVIDERS: PCP Internal Medicine; Visit Provider Orthopaedic Surgery
PROC: (CPT 27130; principal; 2022-10-15 07:30)
DX: M16.12 Unilateral primary osteoarthritis, left hip (principal); S76.019A Strain of muscle, fascia and tendon of unspecified hip, initial encounter; I10 Essential (primary) hypertension; E78.5 Hyperlipidemia, unspecified; E11.9 Type 2 diabetes mellitus without complications; N40.0 Benign prostatic hyperplasia without lower urinary tract symptoms; Z79.84 Long term (current) use of oral hypoglycemic drugs; Z79.82 Long term (current) use of aspirin; X58.XXXA Exposure to other specified factors, initial encounter
CPT/HCPCS: 27130; 27299; 36415; 73502; 80048; 82948; 85025; 86850; 86900; 86901; 87081; 97110; 97116; 97161; 97165; 97530; 97535; A9270; C1713; C1776; J0131; J0171; J0690; J1100; J1170; J1885; J2250; J2270; J2405; J2704; J2710; J2795; J3010; J7120

== ENCOUNTER 2023-01-16 09:53 | Outpatient (RCR) | payer MEDICARE, SELFPAY ==
--- NOTE | 2023-01-16 11:16 | PTOPEVAL1 ---
Assessment and note entered by Uzma Villela, PT Evaluation Information Assessment Status Evaluation Diagnosis L CARI Subjective Information Mathieu Richter reports he underwent a left total hip replacement and muscle repair on 10/15/22. He is having difficulty with walking and putting weight on his left leg. He was toe touch weight bearing for 2 months and then progressed to weight bearing as tolerated. He used a walker initially and now uses a cane. 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 Reported Pain Level Pain Score 2: Self Report Assessment PT Clinical Summary Mathieu Richter presents 13.5 weeks s/p left CARI and gluteus medius repair. He has difficulty with prolonged standing, walking, and prolonged sitting /driving. 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 He objectively demonstrates decreased left hip ROM, decreased left hip strength primarily in the gluteus medius, impaired gait, impaired balance, and decreased functional abilities. He will benefit from skilled PT to address these limitations and return him to his previous PLOF. Plan of Care Interventions Electrical Stimulation,Hot Pack/Cold Pack,Manual Therapy,Neuro Re-education,Patient/Caregiver Educati,Therapeutic Activities,Therapeutic Exercise PT Services Indicated Yes Treatment Frequency and 2 times a week for 12 visits Duration These treatments will address the objective and functional deficits as defined above. The patient will be advanced safely and appropriately in order for the patient to progress towards his/her prior level of function. Additional exercises will be introduced and as well as a comprehensive home exercise program upon discharge, if needed, ?to ensure carryover of functional gains achieved in the clinic. This treatment plan has been reviewed and agreement upon by the patient.
--- NOTE | 2023-02-13 09:10 | PTOPPROGNS ---
Assessment and note entered by Uzma Villela, PT Evaluation Information Assessment Status Progress Diagnosis L CARI Onset 10/15/22 Subjective Information Mathieu Richter reports his left hip is doing well today but it was painful last week. He is not sure what made it so painful last week. He is able to perform all ADLs at this time but he does still feel limited with how far he can walk. Assessment PT Clinical Summary Mathieu Richter has completed 10 skilled PT visits following a left total hip replacement and muscle repair. He is reporting decreased walking endurance and occasional pain in the left hip. He demonstrates improving left hip AROM, strength, gait, and balance. He continues to demonstrate decreased gluteus medius strength which leads to decreased ability to perform single leg stance activities and reciprocal stair climbing. He will continue to benefit from skilled PT to further address these deficits. Plan of Care Interventions Neuro Re-education,Patient/Caregiver Educati, Therapeutic Activities,Therapeutic Exercise PT Services Indicated Yes Treatment Frequency and Continue for 2 more visits per original plan of Duration care. These treatments will address the objective and functional deficits as defined above. The patient will be advanced safely and appropriately in order for the patient to progress towards his/her prior level of function. Additional exercises will be introduced and as well as a comprehensive home exercise program upon discharge, if needed, ?to ensure carryover of functional gains achieved in the clinic. This treatment plan has been reviewed and agreement upon by the patient.
--- NOTE | 2023-02-20 09:04 | PTOPDC ---
Assessment and note entered by JT File, PT Evaluation Information Assessment Status Discharge Diagnosis L CARI Onset 10/15/22 Subjective Information patient reports for the most part he feels Great, but reports at times he has pain down the L LE. he reports he does work hard and is up on his feet all day. Reported Pain Level Pain Score 0: Self Report Assessment PT Clinical Summary mr. barbour presents to skilled PT services for his 12th skilled therapy visit. he has met all goals for skilled PT, except ambulation distance in 6 minute walk test. he is ambulating and climbing stairs with normal gait mechanics and no assistance. he only has deficits in L hip abd strength from normal. he will DC skilled PT this date, and continue with HEP independent at home. he does report symptoms of potential DDD of the lumbar spine, but no positive special tests or symptoms in therapy this date. Plan of Care PT Services Indicated Yes
== END 2023-02-20 13:30 | disposition home or self-care (01) ==
LOC: CHSPT 09:53
PROVIDERS: Visit Provider Orthopaedic Surgery
DX: Z47.1 Aftercare following joint replacement surgery (principal); Z96.642 Presence of left artificial hip joint
CPT/HCPCS: 97110; 97150; 97161; 97530

== ENCOUNTER 2023-03-20 08:11 | Outpatient (CLI) | payer MEDICARE, SELFPAY ==
--- NOTE | ~2023-03-20 | US_ITS ---
EXAMINATION: US soft tissue groin LT DATE: 03/20/2023 08:33 INDICATION: Left groin discomfort and palpable abnormality on physical exam. TECHNIQUE: Multiple grayscale and Doppler ultrasound images of the left groin were obtained. COMPARISON: Left hip MRI dated 06/26/2022 FINDINGS: Normal appearance to the subcutaneous fat, underlying musculature and left inguinal vessels at the re gion of concern. No evident left inguinal hernia. This is concordant with findings on the MRI from 6 months prior. Instantly noted on review of the prior MR imaging is a small fat-containing RIGHT sided inguinal hernia. IMPRESSION: 1. Normal study with no inguinal hernia or other abnormal masses or fluid collections at the left jin in. Reviewed, dictated and finalized at location L. IMPRESSION: 1. Normal study with no inguinal hernia or other abnormal masses or fluid colle ctions at the left groin.
== END 2023-03-20 08:12 | disposition home or self-care (01) ==
LOC: CHSIMG 08:13
PROVIDERS: PCP Clinical Nurse Specialist; Visit Provider Clinical Nurse Specialist
DX: R19.09 Other intra-abdominal and pelvic swelling, mass and lump (principal); M75.81 Other shoulder lesions, right shoulder
CPT/HCPCS: 76882

== ENCOUNTER 2023-03-25 06:55 | Outpatient (CLI) | payer MEDICARE, SELFPAY ==
--- NOTE | ~2023-03-25 | CT_ITS ---
CT of the Abdomen and Pelvis: Indication: Abdominal swelling, mass, left inguinal bulge. Technique: 2.5 mm axial scans were obtained through the abdomen and pelvis following intravenous adm inistration of 100 cc of Omnipaque 350. Dose reduction technique was used on this scan by utilizing a utomated exposure control and iterative reconstruction technique. The dose-length product (DLP) was 7 47.06 mGy-cm. COMPARISON: 08/29/2015 Findings: Scans through the lung bases are unremarkable. The liver, spleen, pancreas, and adrenal glands are within normal limits. Gallbladder not visualized. Possible minimal bilateral hydronephrosis. No evidence of aortic aneurysm. No lymphadenopathy. No bowel obstruction or bowel wall thickening. There is no evidence to suggest acute appendicitis. Images through the pelvis are degraded by streak artifact from left hip arthroplasty. Urinary bladder appears unremarkable. Prostate gland is mildly enlarged. No hernia evident. No ascites. Impression: No hernia or mass lesion seen at the left inguinal region. Minimal bilateral hydronephrosis. Enlarged prostate gland. Reviewed, dictated and finalized at [facility]. Impression: No hernia or mass lesion seen at the left inguinal region. Minimal bilateral hydronephrosis. Enlarged prostate gland.
== END 2023-03-25 06:56 | disposition home or self-care (01) ==
PROVIDERS: PCP Clinical Nurse Specialist; Visit Provider Clinical Nurse Specialist
DX: R19.09 Other intra-abdominal and pelvic swelling, mass and lump (principal); N40.0 Benign prostatic hyperplasia without lower urinary tract symptoms
CPT/HCPCS: 74177; Q9967

== ENCOUNTER 2023-06-02 10:01 | Emergency (ER) | payer MEDICARE, SELFPAY ==
[2023-06-02 10:06] VITALS: BP 148/65; PULSE 67; RESP 20; TEMP 36.4; O2SAT 96
--- NOTE | 2023-06-02 10:17 | ED.URI ---
HPI - URI/Sore Throat General Chief Complaint: Upper Respiratory Infection Stated Complaint: Cough History of Present Illness HPI Narrative: patient presents with cough no shortness of breath and no chest pain wheezing no fever has not take anything over the counter for symptoms Related Data Home Medications Medication Instructions Recorded Confirmed finasteride 5 mg tablet 5 mg PO HS 10/21/19 03/18/23 hydrochlorothiazide 12.5 mg tablet 12.5 mg PO QAM 10/21/19 03/18/23 ibuprofen 400 mg tablet 400 mg PO Q6H PRN Pain 09/18/22 03/18/23 Allergies Allergy/AdvReac Type Severity Reaction Status Date / Time No Known Allergies Allergy Verified 03/18/23 07:36 Review of Systems Review of Systems: CONSTITUTIONAL: Denies chills, or sweats. Reports fever and generalized body aches EYES: Denies visual changes, redness, or discharge. ENT: Denies otalgia. Reports nasal congestion runny nose and sore throat CARDIOVASCULAR: Denies chest pain, palpitations, or edema. RESPIRATORY: Denies dyspnea. Reports occasional cough GASTROINTESTINAL: Denies abdominal pain, nausea, vomiting, or diarrhea. GENITOURINARY: Denies dysuria or hematuria. SKIN: Denies rash or itching. MUSCULOSKELETAL: Denies back pain, joint pain, or myalgia. Reports generalized body aches NEUROLOGIC: Denies headache, numbness, or weakness. PSYCHIATRIC: Denies anxiety or depression. [facility] Past Medical History Medical History Acute medial meniscus tear of right knee Aftercare following surgery BPH (benign prostatic hyperplasia) Cholecystectomy planned 2014 Hyperlipidemia Hypertension Knee pain Obesity Osteoarthritis PUD (peptic ulcer disease) Rupture of tendon of hip abductor Type 2 diabetes mellitus Surgical History Surgical History H/O arthroscopy of shoulder H/O hernia repair 2014 H/O shoulder surgery Left 11/07/2020 Hx of arthroscopy Wrist Status post arthroscopic knee surgery Status post total hip replacement, left abductor muscle repair Family History Family History Mother Family history of transient ischemic attacks Father Carcinoma of colon Family history of congestive heart failure Family history of heart disease in male family member before age 55 Other Family history of malignant neoplasm Social History Social History (Updated 03/18/23 @ 07:41 by Cyndi Leroy [facility]) Social History: Caffeine-coffee Smoking status: Never smoker Alcohol intake: current Drinks per week: 14 Alcohol use details: occasional Substance use: never Substance use type: does not use Lack of Transportation: No Lack of Food: Never True Current Housing: Decline to Answer Concerned About Future Housing: No Difficulty Paying Gas/Electric Bills: No Difficulty Paying for Meds: No Currently Unemployed: No Education: Decline to Answer Difficulty w/ Childcare or Family Care: Decline to Answer Living arrangements: with family Spiritual care concerns: No Comments At time of signature, agree with nursing past medical, surgical, social and family history. There is no relevant family history pertinent to the presenting complaint Exam Narrative: The patient is a well-developed, well-nourished in no acute distress. SKIN: Skin is warm and dry without erythema, swelling or exudate. There is good turgor. No tenting. HEAD: Atraumatic. Normocephalic. No temporal or scalp tenderness. EYES: Moist and bright. Sclera and conjunctivae normal. No discharge. PERRLA. Extraocular motions intact. Gross visual acuity intact. EARS: Pinna is normal shape and contour. Clear external auditory canals. TM pearly arora with good cone of light, no erythema or suppuration. Bilateral cerumen noted no gross hearing deficit. NOSE: pink, moist mucosa with good air movement. Jennifer
== END 2023-06-02 10:28 | disposition home or self-care (01) ==
PROVIDERS: Emergency Provider Nurse Practitioner Family; PCP Internal Medicine
DX: J06.9 Acute upper respiratory infection, unspecified (principal); J40 Bronchitis, not specified as acute or chronic; N40.0 Benign prostatic hyperplasia without lower urinary tract symptoms; E78.5 Hyperlipidemia, unspecified; I10 Essential (primary) hypertension; E66.9 Obesity, unspecified; Z68.30 Body mass index [BMI] 30.0-30.9, adult; M19.90 Unspecified osteoarthritis, unspecified site; K27.9 Peptic ulcer, site unspecified, unspecified as acute or chronic, without hemorrhage or perforation; E11.9 Type 2 diabetes mellitus without complications; Z96.641 Presence of right artificial hip joint
CPT/HCPCS: 99213; G0463

== ENCOUNTER → 2023-06-06 08:13 | Outpatient (CLI) | payer MEDICARE, SELFPAY ==
--- NOTE | ~2023-06-06 | XR_ITS ---
Clinical Indication: Cough PA and lateral views of the chest: Comparison: 09/15/2009 Findings: The lungs are clear, without evidence of focal consolidation or pleural effusion. Cardiome diastinal silhouette is within normal limits. Bones and soft tissues are unremarkable. Impression: Normal chest. Reviewed, dictated and finalized at location . Impression: Normal chest.
== END ==
PROVIDERS: PCP Internal Medicine; Visit Provider Clinical Nurse Specialist
DX: R05.3 Chronic cough (principal); R50.9 Fever, unspecified; E11.9 Type 2 diabetes mellitus without complications; I10 Essential (primary) hypertension
CPT/HCPCS: 71046

== ENCOUNTER → 2023-12-10 08:31 | Outpatient (REF) | payer MEDICARE, SELFPAY | LOC: ANHLAB 08:31 | PROVIDERS: PCP Internal Medicine; Visit Provider Plastic Surgery | DX: C44.42 Squamous cell carcinoma of skin of scalp and neck (principal); L57.8 Other skin changes due to chronic exposure to nonionizing radiation | CPT/HCPCS: 88305 ==

== ENCOUNTER 2023-12-12 14:34 | Outpatient (CLI) | payer MEDICARE, SELFPAY ==
--- NOTE | ~2023-12-12 | CT_ITS ---
EXAMINATION: CT abdomen pelvis wo con DATE: 12/12/2023 14:57 INDICATION: Left lower quadrant abdominal pain. Enlarged prostate. TECHNIQUE: Computed tomography (CT) of the abdomen and pelvis was performed without intravenous contr ast. Automated exposure control and iterative reconstruction technique were employed. The dose-length product was 845.67 mGy-cm. COMPARISON: CT abdomen and pelvis 03/25/2023 FINDINGS: The visualized portions of the lung bases demonstrate mild atelectasis. There is mild scarr ing in paraspinal right lower lobe. A calcified left lung nodule and calcified left hilar lymph nodes are consistent with old granulomatous disease. No pleural effusion. The heart size is normal. There are coronary artery calcifications. No pericardial effusion. The liver is normal. Calcifications in t he spleen are consistent with old granulomatous disease. The pancreas and adrenal glands are normal. There is a 3 mm stone in right kidney. There are cysts in left kidney measuring up to 2.0 cm. The pro state is moderately enlarged. There is diverticulosis of the colon without evidence of diverticulitis . There are no dilated loops of bowel. The appendix is normal. There are no pathologically enlarged l ymph nodes. There is no free intraperitoneal fluid. There is a total left hip arthroplasty. There is moderate thoracic and lumbar spondylosis. IMPRESSION: 1. No etiology for left lower quadrant abdominal pain. Reviewed, dictated and finalized at location E. IAL EDUCATION COORDINATOR
== END 2023-12-12 14:35 | disposition home or self-care (01) ==
PROVIDERS: PCP Internal Medicine; Visit Provider Urology
DX: N40.1 Benign prostatic hyperplasia with lower urinary tract symptoms (principal)
CPT/HCPCS: 74176

== ENCOUNTER 2024-01-15 00:30 | Day surgery (SDC) | payer MEDICARE, SELFPAY ==
[2023-12-23 13:43] VITALS: BMI 30.7
--- NOTE | 2024-01-13 08:19 | SUR.PREOP ---
Patient called regarding upcoming procedure. Reviewed preop instructions, appointment times, and procedure prep.
--- NOTE | 2024-01-14 14:06 | PM.HPGS ---
History of Present Illness History of Present Illness Consent: Risks, benefits, and alternatives have been discussed and questions answered. Patient agrees to proceed with procedure. Chief complaint: hx colon polyps Narrative: Mathieu Richter is a 73 year old male referred for colon cancer screening. He has a history of having had a polyp removed about 7 years ago. also, his father had colon cancer. Review of Systems Review of Systems: All systems reviewed & are unremarkable except as noted in HPI and below PMFSH Past Medical History Medical History Acute medial meniscus tear of right knee Aftercare following surgery BPH (benign prostatic hyperplasia) Cholecystectomy planned 2014 Hyperlipidemia Hypertension Knee pain Obesity Osteoarthritis PUD (peptic ulcer disease) Rupture of tendon of hip abductor Type 2 diabetes mellitus Surgical History Surgical History H/O arthroscopy of shoulder H/O hernia repair 2015 H/O shoulder surgery Left 11/07/2020 Hx of arthroscopy Wrist Status post arthroscopic knee surgery Status post total hip replacement, left (~10/09/22) abductor muscle repair Family History Family History Mother Family history of transient ischemic attacks Father Carcinoma of colon Family history of congestive heart failure Family history of heart disease in male family member before age 55 Other Family history of malignant neoplasm Social History Social History Social History: Caffeine-coffee Smoking status: Never smoker Alcohol intake: current Drinks per week: 14 Alcohol use details: 2 Beers/Day Substance use: never Substance use type: does not use Do You Feel Safe in your Home?: Yes Lack of Transportation: No Lack of Food: Never True Current Housing: Decline to Answer Concerned About Future Housing: No Difficulty Paying Gas/Electric Bills: No Difficulty Paying for Meds: No Currently Unemployed: No Education: Decline to Answer Difficulty w/ Childcare or Family Care: Decline to Answer Living arrangements: with family Spiritual care concerns: No Meds Home Medications and Allergies Home Medications Medication Instructions Recorded Confirmed Type finasteride 5 mg tablet 5 mg PO HS 10/21/19 12/23/23 History hydrochlorothiazide 12.5 mg tablet 12.5 mg PO QAM 10/21/19 12/23/23 History ibuprofen 400 mg tablet 400 mg PO Q6H PRN Pain 09/18/22 12/23/23 History amlodipine 10 mg tablet See Rx Instructions .Route 09/02/23 12/23/23 Rx .COMPLEX #90 tabs losartan 100 mg tablet See Rx Instructions .Route 09/02/23 12/23/23 Rx .COMPLEX #90 tabs metformin 500 mg tablet See Rx Instructions .Route 09/05/23 12/23/23 Rx .COMPLEX #90 tabs atorvastatin 80 mg tablet See Rx Instructions .Route 11/06/23 12/23/23 Rx .COMPLEX #90 tabs cetirizine 10 mg tablet (Zyrtec) 10 mg PO DAILY PRN Allergies 12/23/23 12/23/23 History fluticasone propionate 50 1 spray intranasal BID PRN 12/23/23 12/23/23 History mcg/actuation nasal Allergies spray,suspension (Flonase Allergy Relief) Allergies Allergy/AdvReac Type Severity Reaction Status Date / Time No Known Allergies Allergy Verified 01/15/24 09:05 Exam Resp: Auscultation: clear to auscultation bilaterally Cardio: Rate: regular rate Rhythm: regular rhythm GI: GI Palp: Yes Soft to palpation and No Tenderness to palpation present (GI) Assessment and Plan Assessment and plan (1) Screening for colon cancer: Code(s): Z12.11 - Encounter for screening for malignant neoplasm of colon Status: Acute Assessment and Plan: Colonoscopy with possible biopsy or polypectomy or cautery or injection of substances.
[2024-01-15 09:05] VITALS: BP 142/73; PULSE 53; RESP 16; TEMP 36.2; O2SAT 98
[2024-01-15] MEDS: LACTATED RINGERS 1,000 ML 150 ML IV CONT (09:16)
--- NOTE | 2024-01-15 09:35 | WPDANESEPPF ---
Anes - Initial Pre Proc Eval Procedure: Operation Date: 01/15/24 10:00 Proposed Procedures p Colonoscopy - Ran Wong MD Date/Time: 01/15/24 09:35 Surgeon: Ran Wong MD Pre Op Diagnosis: hx colon polyps Patient Data Age: 73 Gender: M Height: 1.8 m Weight: 96.7 kg Last Vital Signs Temp 36.2 C L 01/15/24 09:05 Pulse 53 L 01/15/24 09:05 Resp 16 01/15/24 09:05 BP 142/73 H 01/15/24 09:05 Pulse Ox 98 01/15/24 09:05 O2 Del Method Room Air 01/15/24 09:05 Allergies Allergy/AdvReac Type Severity Reaction Status Date / Time No Known Allergies Allergy Verified 01/15/24 09:05 Home Medications Medication Instructions Recorded Confirmed Type finasteride 5 mg tablet 5 mg PO HS 10/21/19 12/23/23 History hydrochlorothiazide 12.5 mg tablet 12.5 mg PO QAM 10/21/19 12/23/23 History ibuprofen 400 mg tablet 400 mg PO Q6H PRN Pain 09/18/22 12/23/23 History amlodipine 10 mg tablet See Rx Instructions .Route 09/02/23 12/23/23 Rx .COMPLEX #90 tabs losartan 100 mg tablet See Rx Instructions .Route 09/02/23 12/23/23 Rx .COMPLEX #90 tabs metformin 500 mg tablet See Rx Instructions .Route 09/05/23 12/23/23 Rx .COMPLEX #90 tabs atorvastatin 80 mg tablet See Rx Instructions .Route 11/06/23 12/23/23 Rx .COMPLEX #90 tabs cetirizine 10 mg tablet (Zyrtec) 10 mg PO DAILY PRN Allergies 12/23/23 12/23/23 History fluticasone propionate 50 1 spray intranasal BID PRN 12/23/23 12/23/23 History mcg/actuation nasal Allergies spray,suspension (Flonase Allergy Relief) Patient hx anesthesia problems: none Family hx anesthesia problems: none Results Review: All pre-operative results and documents have been reviewed as part of the pre-operative evaluation. [facility] Past Medical History Medical History Acute medial meniscus tear of right knee Aftercare following surgery BPH (benign prostatic hyperplasia) Cholecystectomy planned 2014 Hyperlipidemia Hypertension Knee pain Obesity Osteoarthritis PUD (peptic ulcer disease) Rupture of tendon of hip abductor Type 2 diabetes mellitus Surgical History Surgical History H/O arthroscopy of shoulder H/O hernia repair 2014 H/O shoulder surgery Left 11/07/2020 Hx of arthroscopy Wrist Status post arthroscopic knee surgery Status post total hip replacement, left (~10/09/22) abductor muscle repair Family History Family History Mother Family history of transient ischemic attacks Father Carcinoma of colon Family history of congestive heart failure Family history of heart disease in male family member before age 55 Other Family history of malignant neoplasm Social History Social History Social History: Caffeine-coffee Smoking status: Never smoker Alcohol intake: current Drinks per week: 14 Alcohol use details: 2 Beers/Day Substance use: never Substance use type: does not use Do You Feel Safe in your Home?: Yes Lack of Transportation: No Lack of Food: Never True Current Housing: Decline to Answer Concerned About Future Housing: No Difficulty Paying Gas/Electric Bills: No Difficulty Paying for Meds: No Currently Unemployed: No Education: Decline to Answer Difficulty w/ Childcare or Family Care: Decline to Answer Living arrangements: with family Spiritual care concerns: No Anes - Eval Final PreProcedure Day of Procedure 01/15/24 09:35 Patient weight: overweight Heart: regular rate and rhythm Lungs: clear to auscultation Airway: Mallampati scale class II Neurological: alert and oriented Last oral intake: >/= 8 hours ASA classification: III Emergent: no Anesthetic plan: proceed Anesthesia type and monitoring: general GIVS and standard monitoring Results Review:
[2024-01-15 10:25] LABS: Glucose Point of Care 153 mg/dl (65-105)
[2024-01-15 10:41] VITALS: BP 118/61; PULSE 48; RESP 15; O2SAT 97
[2024-01-15 10:51] VITALS: BP 126/73; PULSE 54; RESP 21; O2SAT 97
[2024-01-15 11:01] VITALS: BP 133/76; PULSE 48; RESP 15; O2SAT 97
== END 2024-01-15 11:11 | disposition home or self-care (01) ==
PROVIDERS: PCP Internal Medicine; Visit Provider Internal Medicine Gastroenterology
PROC: 0DJD8ZZ Inspection of Lower Intestinal Tract, Via Natural or Artificial Opening Endoscopic (ICD-10-PCS; CPT 45378; principal; 2024-01-15 10:00)
DX: Z12.11 Encounter for screening for malignant neoplasm of colon (principal); D12.2 Benign neoplasm of ascending colon; D12.3 Benign neoplasm of transverse colon; K57.30 Diverticulosis of large intestine without perforation or abscess without bleeding; Z80.0 Family history of malignant neoplasm of digestive organs; E78.5 Hyperlipidemia, unspecified; I10 Essential (primary) hypertension; E11.9 Type 2 diabetes mellitus without complications; Z96.642 Presence of left artificial hip joint
CPT/HCPCS: 45385; 45381; 82948; 88305; J2704; J7120

== ENCOUNTER 2024-06-23 09:11 | Outpatient (CLI) | payer MEDICARE, SELFPAY ==
[2024-06-23 13:21] LABS: Bilirubin Indirect 2.4 mg/dL (0-1.1); Bilirubin,Total 2.9 mg/dL (0.2-1.3)
== END 2024-06-23 09:12 | disposition home or self-care (01) ==
PROVIDERS: PCP Internal Medicine; Visit Provider Clinical Nurse Specialist
DX: R17 Unspecified jaundice (principal)
CPT/HCPCS: 36415; 82247; 82248

== ENCOUNTER → 2024-06-23 13:31 | Outpatient (REF) | payer MEDICARE, SELFPAY | LOC: ANHLAB 13:31 | PROVIDERS: PCP Internal Medicine; Visit Provider Plastic Surgery | DX: L90.5 Scar conditions and fibrosis of skin (principal) | CPT/HCPCS: 36415; 82247; 82248; 88305 ==

== ENCOUNTER → 2025-09-19 12:17 | Outpatient (REF) | payer MEDICARE, SELFPAY ==
--- NOTE | 2025-09-19 12:17 | S_PTH ---
PATIENT: Mathieu Richter LOC: [facility] #:[id number] AGE/SX: 75/M ROOM: RE09/19/[address]: Jaleel Guerin MD : 1950 BED: DIS: SPEC #: [id number] RECD: 09/19/25 12:55 STATUS: COLLEEN REBrian #: [id number] ERIC: 09/19/25 12:[address]: Jaleel Guerin DEPT: [facility] Surgical RECD BY: Maryellen Schmidt Tissues: A - Skin Procedures: Hematoxylin and Eosin Stain Gross and Microscopic Level 4
--- OUTSIDE RECORDS SUMMARY | 2025-09-19 13:36 | XMS_ITS | Encounter Summary ---
Author Organization [facility] Address [address] [place] [address] Phone Care Team Providers Care Green Building Energy Engineer Name Role Phone Erickson Garsia DO Primary Care Provider Encounter Details Date Type Department Care Team (Latest Contact Info) Description 10/25/2019 Orders Only [facility] Scanning, Provider Social History Tobacco Use Types Packs/Day Years Used Date Smoking Tobacco: Never Smokeless Tobacco: Never Sex and Gender Information Value Date Recorded Sex Assigned at Not on file Legal Sex Male 2:12 AM SENIOR PARALEGAL Gender Identity Not on file Sexual Orientation Not on file documented as of this encounter Plan of Treatment Not on file documented as of this encounter Procedures Procedure Name Priority Date/Time Associated Diagnosis Comments SCAN - LABS 10/25/2019 documented in this encounter Results * SCAN - LABS (10/25/2019) us Provider Scanning Final Result documented in this encounter Visit Diagnoses Not on filedocumented in this encounter Care Teams Green Building Energy Engineer Relationship Specialty Start Date End Date Erickson Garsia DO PCP - General Internal Medicine 05/19/19 documented as of this encounter
--- OUTSIDE RECORDS SUMMARY | 2025-09-19 13:36 | XMS_ITS | Encounter Summary ---
Author Organization [facility] Address [address] [place] [address] Phone Care Team Providers Care Human Development Professor Name Role Phone Erickson Garsia DO Primary Care Provider Encounter Details Date Type Department Care Team (Latest Contact Info) Description 02/23/2024 Orders Only [facility] Lucila Anguiano, LETY [address] [facility] [address] [place] [address] Social History Tobacco Use Types Packs/Day Years Used Date Smoking Tobacco: Never Smokeless Tobacco: Never Sex and Gender Information Value Date Recorded Sex Assigned at Not on file Legal Sex Male 2:12 AM SUPERVISOR HYDROCHLORIC AREA Gender Identity Not on file Sexual Orientation Not on file documented as of this encounter Plan of Treatment Not on file documented as of this encounter Procedures Procedure Name Priority Date/Time Associated Diagnosis Comments SCAN - LABS 02/23/2024 documented in this encounter Results * SCAN - LABS (02/23/2024) us Lucila Anguiano RN Final Result documented in this encounter Visit Diagnoses Not on filedocumented in this encounter Care Teams Human Development Professor Relationship Specialty Start Date End Date Erickson Garsia DO PCP - General Internal Medicine 05/19/19 documented as of this encounter
--- OUTSIDE RECORDS SUMMARY | 2025-09-19 13:36 | XMS_ITS | Encounter Summary ---
Author Organization [facility] Address [address] [place] [address] Phone Care Team Providers Care Meter Tester Primary Name Role Phone Erickson Garsia DO Primary Care Provider Encounter Details Date Type Department Care Team (Latest Contact Info) Description 06/14/2020 Orders Only [facility] Scanning, Provider Social History Tobacco Use Types Packs/Day Years Used Date Smoking Tobacco: Never Smokeless Tobacco: Never Sex and Gender Information Value Date Recorded Sex Assigned at Not on file Legal Sex Male 2:12 AM FORENSIC DOCUMENT EXAMINER Gender Identity Not on file Sexual Orientation Not on file documented as of this encounter Plan of Treatment Not on file documented as of this encounter Procedures Procedure Name Priority Date/Time Associated Diagnosis Comments SCAN - LABS 06/14/2020 documented in this encounter Results * SCAN - LABS (06/14/2020) us Provider Scanning Final Result documented in this encounter Visit Diagnoses Not on filedocumented in this encounter Care Teams Meter Tester Primary Relationship Specialty Start Date End Date Erickson Garsia DO PCP - General Internal Medicine 05/19/19 documented as of this encounter
--- OUTSIDE RECORDS SUMMARY | 2025-09-19 13:36 | XMS_ITS | Encounter Summary ---
Author Organization [facility] Address [address] [place] [address] Phone Care Team Providers Care Director Of Business Operations Name Role Phone Erickson Garsia DO Primary Care Provider Encounter Details Date Type Department Care Team (Late st Contact Info) Description 02/11/2023 Telephone [facility] Cardiology [address] [facility] [address] [place] [address] [place] [id number] Kevin Bailey CMA Social History Tobacco Use Types Packs/Day Years Used Date Smoking Tobacco: Never Smokeless Tobacco: Never Sex and Gender Information Value Date Recorded Sex Assigned at Not on file Legal Sex Male 2:12 AM CONVERTIBLE TOP INSTALLER Gender Identity Not on file Sexual Orientation Not on file documented as of this encounter Plan of Treatment Not on file documented as of this encounter Visit Diagnoses Not on filedocumented in this encounter Care Teams Director Of Business Operations Relationship Specialty Start Date End Date Erickson Garsia DO PCP - General Internal Medicine 05/19/19 documented as of this encounter
--- OUTSIDE RECORDS SUMMARY | 2025-09-19 13:36 | XMS_ITS | Encounter Summary ---
Author Organization [facility] Address [address] [place] [address] Phone Care Team Providers Care Interactive Art Director Name Role Phone Erickson Garsia DO Primary Care Provider Encounter Details Date Type Department Care Team (Latest Contact Info) Description 08/30/2019 Orders Only [facility] Scanning, Provider Social History Tobacco Use Types Packs/Day Years Used Date Smoking Tobacco: Never Smokeless Tobacco: Never Sex and Gender Information Value Date Recorded Sex Assigned at Not on file Legal Sex Male 2:12 AM WELT TREATER Gender Identity Not on file Sexual Orientation Not on file documented as of this encounter Plan of Treatment Not on file documented as of this encounter Procedures Procedure Name Priority Date/Time Associated Diagnosis Comments CARDIOLOGY DOCUMENT SCAN 08/30/2019 documented in this encounter Results * SCAN - CARDIOLOGY (08/30/2019) Anatomical Region Laterality Modality Other us Provider Scanning CV CARDIAC SERVICES PROCEDURES Final Result documented in this encounter Visit Diagnoses Not on filedocumented in this encounter Care Teams Interactive Art Director Relationship Specialty Start Date End Date Erickson Garsia DO PCP - General Internal Medicine 05/19/19 documented as of this encounter
--- OUTSIDE RECORDS SUMMARY | 2025-09-19 13:36 | XMS_ITS | Clinical Summary ---
Author Organization [facility] Address [address] [place] [phone] Care Team Providers Care Hot Tamale Man Name Role Phone ElioErickson pineda Forest STRICKLAND Primary Care Provider Allergies Active Allergy Reactions Criticality Noted Date Comments Morphine Other (See comments) Medium 12/28/2013 NOT EFFECTIVE. Medications amLODIPine (NORVASC) 10 mg tablet daily. 12/05/2011 Active atorvastatin (LIPITOR) 80 mg tablet TAKE 1 TABLET BY MOUTH AT BEDTIME 11/29/2015 Active losartan (COZAAR) 100 mg tablet daily. 12/05/2011 Active finasteride (PROSCAR) 5 mg tablet Take 1 tablet (5 mg total) by mouth daily Active metFORMIN (GLUCOPHAGE) 500 mg tablet TK 1 T PO QD 2 07/23/2019 Ac tive hydroCHLOROthia zide 12.5 mg tablet TAKE 1 TABLET(12.5 MG) BY MOUTH DAILY 90 tablet 3 01/19/2025 Active Active Problems Problem Noted Date Diagnosed Date Dyslipidemia 11/24/2019 HTN (hypertension), benign 05/20/2019 Increased body mass index (BMI) 03/11/2016 Shortness of breath 12/06/2011 Chest pain 12/06/2011 Encounters Date Type Department Care Team Description 07/20/2025 8:45 AM CDT Office Visit [facility] Medicine Cardiology [address] [facility] [address] [place] [address] Montrell Padilla MD HTN (hypertension), benign (Primary Dx) from Last 3 Months Medical History Medical History Date Comments Mixed hyperlipidemia Hypertension Controlled type 2 diabetes m ellitus without complication, without long-term current use of insulin Benign prostatic hyperplasia with post-void drib sisi Family History Medical History Relation Name Comments had a pacemaker Father Relation Name Status Comments Father Social History Tobacco Use Types Packs/Day Years Used Date Smoking Tobacco: Never Smokeless Tobacco: Never Sex and Gender Information Value Date Recorded Sex Assigned at Not on file Legal Sex Male 2:12 AM JAVA ARCHITECT Gender Identity Not on file Sexual Orientation Not on file Last Filed Vital Signs Vital Sign Reading Time Taken Comments Blood Pressure 154/81 07/20/2025 8:37 AM CDT Pulse 53 07/20/2025 8:37 AM CDT Temperature 36.5 C (97.7 F) 07/20/2025 8:37 AM CDT Respiratory Rate 18 04/26/2022 11:36 AM CDT Oxygen Saturation 95% 07/20/2025 8:37 AM CDT Inhaled Oxygen Concentration - - Weight 95.5 kg (210 lb 9.6 oz) 07/20/2025 8:37 A M CDT Height 177.8 cm (5' 10) 07/20/2025 8:37 AM CDT Body Mass Index 30.22 07/20/2025 8:37 AM CDT Plan of Treatment Health Maintenance Due Date Last Done Comments Colon Cancer Screening-Colonoscopy 1950 Depression Screening 1950 Fall Risk Assessment 1950 Hepatitis C Screening 1950 DTaP/Tdap/Td Vaccine (1 - Tdap) 1963 Hepatitis B Screening 1970 Pneumococcal vaccine 65+ (1 of 1 - PCV) 2002 Well Visit 65+ 2017 Influenza Vaccine (#1) 2025 , 10/11/2020, 09/16/2018, Additional history exists Zoster Vaccine Completed 04/10/2022, 12/18, 09/07/2012 Insurance MEDICARE MEDICARE [facility] MEDICARE Care Teams Hot Tamale Man Relationship Specialty Start Date End Date Erickson Garsia DO PCP - General Internal Medicine 05/19/19
== END ==
LOC: ANHLAB 12:17
PROVIDERS: Visit Provider Plastic Surgery
DX: C44.629 Squamous cell carcinoma of skin of left upper limb, including shoulder (principal)
CPT/HCPCS: 88305